=== PATIENT | male | born 1980 | race Caucasian/White ===

== ENCOUNTER 2016-07-11 19:41 | Emergency (ER) | payer BC ==
[~2016-07-11] VITALS: Ht 182.9 cm; Wt 72.7 kg
[~2016-07-11 19:41] MED LIST: LORTAB 7.5/5001 TAB PO; NO HOME MEDICATIONS
[2016-07-11 19:46] VITALS: TEMP 97.5
[2016-07-11] MEDS ORDERED: NORCO 325 MG-51 TAB PO (21:34)
[2016-07-11 21:49] VITALS: BP 115/76; PULSE 64
== END 2016-07-11 21:52 | disposition home or self-care (01) ==
LOC: COL.ER 19:41
DX: M24.411 Recurrent dislocation, right shoulder (principal)
CPT/HCPCS: J3010

== ENCOUNTER 2019-07-12 09:07 | Emergency (ER) | payer OTHER ==
[~2019-07-12] VITALS: Ht 182.9 cm; Wt 72.7 kg
[~2019-07-12 09:07] MED LIST changes: +NORCO 325 MG-51 TAB PO
[2019-07-12 09:09] VITALS: TEMP 98.4
[2019-07-12 11:15] VITALS: BP 136/77; PULSE 76
== END 2019-07-12 11:10 | disposition home or self-care (01) ==
LOC: COL.ER 09:07
DX: S09.90XA Unspecified injury of head, initial encounter (principal); S40.012A Contusion of left shoulder, initial encounter; V87.7XXA Person injured in collision between other specified motor vehicles (traffic), initial encounter